=== PATIENT | female | born 1980 | race Caucasian/White ===

== ENCOUNTER 2017-01-15 08:36 | Day surgery (SDC) | payer OTHER ==
[2017-01-07 12:29] LABS: ABSOLUTE BASOPHILS # (AUTO) 0.1 10^3/uL (0.0-0.2); ABSOLUTE EOSINOPHILS # (AUTO) 0.6 10^3/uL (0.0-0.6); ABSOLUTE LYMPHOCYTES (AUTO) 2.5 10^3/uL (0.5-4.7); ABSOLUTE MONOCYTES (AUTO) 0.7 10^3/uL (0.1-1.4); ABSOLUTE NEUT (AUTO) 6.9 10^3/uL (1.7-8.2); BASOPHILS % (AUTO) 0.5 % (0-2); EOSINOPHILS % (AUTO) 5.1 % (0-6); HEMATOCRIT 38.3 % (36.0-47.0); HEMOGLOBIN 12.8 g/dL (12.0-15.5); HGB HCT DIFFERENCE 0.1; LYMPHOCYTES % (AUTO) 23.2 % (13-45); MEAN CORPUSCULAR HEMOGLOBIN 27.5 pg (27.0-33.4); MEAN CORPUSCULAR HGB CONC 33.3 g/dL (32.0-36.0); MEAN CORPUSCULAR VOLUME 83 fl (80-97); MONOCYTES % (AUTO) 6.8 % (3-13); RED BLOOD COUNT 4.64 10^6/uL (3.72-5.28); RED CELL DISTRIBUTION WIDTH 13.4 % (11.5-14.0); SEGMENTED NEUTROPHILS % (AUTO) 64.4 % (42-78); WHITE BLOOD COUNT 10.7 10^3/uL (4.0-10.5)
[2017-01-07 12:37] LABS: APPEARANCE,URINE CLEAR; BILIRUBIN,URINE NEGATIVE (NEGATIVE); GLUCOSE, URINE NEGATIVE (NEGATIVE); KETONES,URINE NEGATIVE (NEGATIVE); LEUKOCYTE ESTERASE,URINE NEGATIVE (NEGATIVE); NITRITE,URINE NEGATIVE (NEGATIVE); PROTEIN,URINE NEGATIVE (NEGATIVE); URINE SPECIFIC GRAVITY 1.003; UROBILINOGEN,URINE NEGATIVE mg/dL (<2.0)
[2017-01-07 12:50] LABS: ANION GAP 13 (5-19); BLOOD UREA NITROGEN 7 mg/dL (7-20); CALCIUM 9.6 mg/dL (8.4-10.2); CARBON DIOXIDE 26 mmol/L (22-30); CHLORIDE 104 mmol/L (98-107); CREATININE RESULT 0.65 mg/dL (0.52-1.25); GLUCOSE 80 mg/dL (75-110); SODIUM 142.8 mmol/L (137-145)
[2017-01-07 14:01] LABS: HEMATOCRIT 38.3 % (36.0-47.0); HEMOGLOBIN 12.8 g/dL (12.0-15.5); HGB HCT DIFFERENCE 0.1; MEAN CORPUSCULAR HEMOGLOBIN 27.5 pg (27.0-33.4); MEAN CORPUSCULAR HGB CONC 33.3 g/dL (32.0-36.0); MEAN CORPUSCULAR VOLUME 83 fl (80-97); RED BLOOD COUNT 4.64 10^6/uL (3.72-5.28); RED CELL DISTRIBUTION WIDTH 13.4 % (11.5-14.0); WHITE BLOOD COUNT 10.7 10^3/uL (4.0-10.5)
--- NOTE | 2017-01-07 19:03 | EKG REPORT ---
SEVERITY:- NORMAL ECG - SINUS RHYTHM : Confirmed by: Michelle Hernandez 07-Jan-2017 19:02:21
[~2017-01-15 08:36] MED LIST: CEFAZOLIN 2 GM/D5W RTU 2 GM/50 ML RTUPB IV PRN; LACTATED RINGERS 1000 ML IV PRN; LIDOCAINE 0.5% INJ-PF (5 MG/ML) 50 ML SDV SUBCUT PRN
[2017-01-15] MEDS ORDERED: FENTANYL CITRATE INJ/PF 100 MCG/2 ML AMPUL ONE (09:46)
[2017-01-15] MEDS ORDERED: FENTANYL CITRATE INJ/PF 250 MCG/5 ML AMPULE ONE (09:46)
[2017-01-15] MEDS ORDERED: ACETAMINOPHEN 100 ML IV ONE (09:47)
[2017-01-15] MEDS ORDERED: MIDAZOLAM 2 MG/2 ML INJ ONE (09:47)
[2017-01-15] MEDS ORDERED: MORPHINE SULFATE 10 MG/ML INJ ONE (09:47)
[2017-01-15] MEDS ORDERED: PROPOFOL INJ 200 MG/20 ML VIAL IV ONE (09:47)
[2017-01-15] MEDS ORDERED: BUPIVACAINE HCL 0.5 % INJ/PF 30 ML SDV ONE (09:53)
[2017-01-15] MEDS ORDERED: LIDOCAINE 1% INJ-PF (10 MG/ML) 30 ML SDV ONE (10:41)
[2017-01-15] MEDS ORDERED: DIPHENHYDRAMINE HCL 50 MG/ML VIAL IV PRN (11:07)
[2017-01-15] MEDS ORDERED: MORPHINE SULFATE 10 MG/ML INJ IV PRN (11:07)
[2017-01-15] MEDS ORDERED: FENTANYL CITRATE INJ/PF 100 MCG/2 ML AMPUL IV PRN ×3 (11:07)
[2017-01-15] MEDS ORDERED: OXYCODONE-ACETAMINOPHEN 5-325 MG TABLET PO PRN ×3 (11:07→12:44)
[2017-01-15] MEDS ORDERED: MEPERIDINE HCL/PF INJ 25 MG/1 ML DISP.SYRIN IV PRN (11:07)
[2017-01-15] MEDS ORDERED: PROMETHAZINE HCL INJ 25 MG/1 ML VIAL IV PRN ×2 (11:07)
[2017-01-15] MEDS ORDERED: HYDROMORPHONE HCL INJ/PF 2 MG/ML AMPULE IV PRN (12:44)
[2017-01-15] MEDS ORDERED: ONDANSETRON HCL INJ/PF 4 MG/2 ML SDV IV PRN (12:44)
--- NOTE | 2017-01-15 12:45 | PDOC DISCHARGE SUMMARY ---
Discharge Summary (SDC) - Discharge Final Diagnosis: LEFT cubital tunnel syndrome, dorsal wrist ganglion Date of Surgery: 01/15/17 Discharge Date: 01/15/17 Condition: Good Treatment or Instructions: Schedule Follow Up w/ Dr. Shawn Membreno @ [facility] for Surgery to be seen in 10-14 days or as scheduled [place]: [place]: [place]: Keep splint clean/dry/intact. Ice and elevate May begin finger range of motion attempting to make full fist. Stool softener of choice when on pain medication. Discharge Diet: As Tolerated Respiratory Treatments at Home: Deep Breathing/Coughing Discharge Activity: No Lifting Over 10 Pounds, No Lifting/Push/Pulling Report the Following to Your Physician Immediately: Fever over 101 Degrees, Unusual Bleeding, Redness, Swelling, Warmth, Increased Soreness, Numbness, Tingling Sensation
[2017-01-15] MEDS ORDERED: ONDANSETRON HCL INJ/PF 4 MG/2 ML SDV ONE ×2 (12:46→14:04)
--- NOTE | 2017-01-15 12:50 | Operative Report ---
Operative Report DATE OF SURGERY: 01/15/17 PREOPERATIVE DIAGNOSIS: Left Cubital Tunnel Syndrome, Dorsal Wrist Ganglion POSTOPERATIVE DIAGNOSIS: Same OPERATION: In Situ Cubital Tunnel Release, Excision Dorsal Ganglion Cyst SURGEON: HUSSEIN ARANA ANESTHESIA: GA COMPLICATIONS: None ESTIMATED BLOOD LOSS: Minimal PROCEDURE: Indication for above procedure: 36-year-old female presents by office with complaints of numbness and tingling in her ring and small finger along with a ganglion cyst of her left wrist. Neurodiagnostic testing was done confirming cubital tunnel syndrome on the left. At that point we discussed treatment options including activity modification versus operative intervention. Risks and benefits of the operative procedure were explained patient at that point patient and myself made the joint decision to proceed with operative intervention. Procedure In Detail: Patient was seen and evaluated in the preoperative holding area. The LEFT upper extremity was initialized and marked. Patient received 2g of Ancef IV for bacterial prophylaxis. Patient was taken back to the operative room where transferred to the operative table and placed under general anesthesia. Once they were adequately anesthetized and a nonsterile tourniquet was placed on the upper extremity. A surgical team debriefing was performed ensuring all instrumentation was available, the surgical procedure was discussed with possible concerns reviewed. The upper extremity was prepped with chlorhexidine and alcohol and draped in a sterile fashion. A timeout was done identifying correct patient, procedure and extremity everyone in attendance agree with this and verbalized no concerns. The extremity was exsanguinated the tourniquet was inflated to 200 mmHg. A longitudinal skin incision was made centered over the cubital tunnel. Careful dissection was done through the overlying soft tissues any peripheral vasculature was carefully coagulated with bipolar cautery. The branches of the medial antebrachial cutaneous nerve were identified and protected throughout the entirety of the case. Once within the confines of the cubital tunnel the ulnar nerve was identified at the proximal aspect of the wound. At this level I carefully released a medial portion of the triceps and the medial intermuscular septum freeing the ulnar nerve proximally of any overlying soft tissue compression. I then continued to track the ulnar nerve distally releasing Flores's fascia. At the level of the FCU aponeurosis between the 2 heads of the FCU muscle. No evidence of anomalous aconeus epitrochlear's was appreciated. The fascia was released once again relieving any external compression from the ulnar nerve distally to the level of the first motor branch. I then freed up the nerve posteriorly ensuring there is no remaining soft tissue bands of tissue causing compression. During dissection of the nerve careful attention was directed at avoiding disruption of the ulnar nerve blood supply. Elbow range of motion was then done from full flexion to full extension with full flexion there was evidence of anterior subluxation of the ulnar nerve from the groove. And thus I determine patient would require anterior subcutaneous ulnar nerve transposition To perform the transposition skin incision was extended proximally and distally the nerve was further freed from overlying soft tissue distally within the FCU muscle bellies and proximally along the medial intermuscular septum. A section of the medial intermuscular septum was removed to avoid proximal compression or kinking of the nerve after transposition. A vessel loop was placed around the nerve and its posterior vascular suture both of which were carefully transposed anteriorly. At this point I checked the nerve proximally and distally to confirm there was no compression with range of motion from full flexion to full extension. Once I ensured no compression of the nerve I carefully dissected the subcutaneous tissues anteriorly taking note to avoid any branches of the medial antebrachial cutaneous nerve. Once I developed an appropriate sized flap of adipose tissue this was carefully secured to the subcutaneous tissue with a 3-0 Vicryl suture securing the nerve while a [place] was placed at the level of the ulnar nerve to ensure no external compression from my subcutaneous adipose flap. Once this was complete I once again flexed and extended the elbow ensuring no proximal or distal compression of the ulnar nerve. Longitudinal skin incision was made centered over the dorsal ganglion cyst. Blunt dissection was performed any peripheral vasculature was carefully Isra with bipolar cautery. The fourth dorsal compartment was identified and retracted in a ulnar direction. Ganglion cyst was then identified. A transverse incision was made into the dorsal wrist capsule continuing to track the dorsal ganglion cyst in a volar direction. The root of the tendon cyst was then identified emanating from the scapholunate interval the ganglion cyst was then excised taking special care to avoid iatrogenic injury to the scapholunate ligament. The cyst was excised in its entirety and sent to pathology. Wound was copiously irrigated with normal saline there is negative Espinal's maneuver after excision of the ganglion cyst. Skin was closed with a running subcuticular 4-0 Monocryl. The tourniquet was then deflated. Compression was made to the wound for 2 minutes. I then identified any peripheral bleeding and carefully coagulated with bipolar cautery. The wound was then irrigated with normal saline. Subcutaneous tissues were closed with interrupted 4-0 Monocryl. Skin was closed a running subcuticular 3-0 Monocryl reinforced with Dermabond and Steri- Strips. Wounds dressed with 4 x 4's, ABDs and a soft dressing. The ganglion excision site was dressed with 4 x 4's and a dorsal resting splint was placed. Sponge counts, instrument counts, needle counts counts were correct. Patient was then awoken from anesthesia. Transferred from the operating room table to the operating room stretcher. There was no intraoperative complications patient tolerated procedure well stable to PACU. Postoperative plan: Patient will follow-up in the office as scheduled which point we will proceed with wound check. She may begin gentle range of motion exercises but avoid any heavy lifting at her first postoperative appointment.
[2017-01-15] MEDS ORDERED: METOCLOPRAMIDE HCL INJ/PF 10 MG/2 ML SDV ONE (13:09)
[2017-01-15] MEDS ORDERED: PROMETHAZINE HCL 25 MG SUPP.RECT PR ONE (14:00)
[2017-01-15] MEDS ORDERED: KETOROLAC TROMETHAMINE 60 MG/2 ML SDV ONE (14:04)
[2017-01-15] MEDS ORDERED: NEOSTIGMINE METHYLSULFATE 10 MG/10 ML VIAL ONE (14:04)
[2017-01-15] MEDS ORDERED: PHENYLEPHRINE HCL INJ/PF 10 MG/1 ML SDV ONE (14:04)
[2017-01-15] MEDS ORDERED: SUCCINYLCHOLINE CHLORIDE INJ 200 MG/10 ML VIAL ONE (14:04)
[2017-01-15] MEDS ORDERED: ROCURONIUM BROMIDE INJ 50 MG/5 ML VIAL IV ONE (14:04)
[2017-01-15] MEDS ORDERED: DEXAMETHASONE SOD PHOSPHATE INJ 4 MG/1 ML VIAL ONE (14:04)
[2017-01-15] MEDS ORDERED: GLYCOPYRROLATE INJ 0.4 MG/2 ML VIAL ONE (14:04)
[2017-01-15] MEDS ORDERED: LIDOCAINE 2% INJ-PF (20 MG/ML) 10 ML AMPUL ONE (14:04)
[2017-01-15] MEDS ORDERED: RINGERS SOLUTION,LACTATED 500 ML IV PRN (14:45)
[2017-01-15 15:17] VITALS: BP 107/61
== END 2017-01-15 15:15 | disposition home or self-care (01) ==
LOC: OROUT 08:36
PROVIDERS: ATTEND Orthopaedic Surgery
PROC: 01N40ZZ Release Ulnar Nerve, Open Approach (ICD-10-PCS; principal; 2017-01-15 10:45)
PROC: 0RBP0ZZ Excision of Left Wrist Joint, Open Approach (ICD-10-PCS; 2017-01-15 10:45)
DX: M67.432 Ganglion, left wrist (principal); G56.22 Lesion of ulnar nerve, left upper limb; M19.93 Secondary osteoarthritis, unspecified site; J30.2 Other seasonal allergic rhinitis; Z79.51 Long term (current) use of inhaled steroids
CPT/HCPCS: 93005; 36415; 85025; 81025; 80048; 81001; 71020; 93010; 64718; 25111; J2250; J3490 ×2; J1100; J1885; J3010 ×2; J2765; J2370; J0330; J2405; J2704; J0690; J0131; 1810; 85027; J2270